=== PATIENT | male | born 1975 | race Caucasian/White ===

== ENCOUNTER 2020-11-19 16:58 | Emergency (ER) | payer SELFPAY ==
[~2020-11-19] VITALS: Ht 177.8 cm; Wt 127.9 kg
[2020-11-19 16:59] VITALS: BP 132/85
== END 2020-11-19 19:26 | disposition left against medical advice (07) ==
LOC: M ED 16:58
DX: Z53.21 Procedure and treatment not carried out due to patient leaving prior to being seen by health care provider (principal)